=== PATIENT | female | born 1985 | race Caucasian/White ===

== ENCOUNTER 2017-05-15 02:27 | Emergency (ER) | payer OTHER ==
[~2017-05-15] VITALS: Ht 165.1 cm; Wt 60.0 kg
[~2017-05-15 02:27] MED LIST: AUGM875T PO; FLAG500T PO; IBUP-232 PO
[2017-05-15 02:36] VITALS: BP 171/100; PULSE 89; RESP 18; O2SAT 100
[2017-05-15] MEDS ORDERED: TETANUS/DIPHTHERIA TOXOID ADULT 0.5 ML VIAL IM ONE (03:00)
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
== END 2017-05-15 05:02 ==
LOC: NEPD 02:27
DX: S00.93XA Contusion of unspecified part of head, initial encounter (principal); Y00.XXXA Assault by blunt object, initial encounter; Z23 Encounter for immunization
CPT/HCPCS: 70450; 90471; 90714